=== PATIENT | female | born 1975 | race African-American/Black ===

== ENCOUNTER 2018-11-28 14:10 | Emergency (ER) | payer MEDICAID ==
[~2018-11-28] VITALS: Ht 167.6 cm; Wt 59.0 kg
[2018-11-28] MEDS ORDERED: MORPHINE SULFATE 4 MG/ML CPJ (NOT FOR IM USE) IV STA (15:02)
[2018-11-28] MEDS ORDERED: ONDANSETRON HCL 4MG/2ML INJ IV STA (15:02)
[2018-11-28] MEDS ORDERED: SODIUM CHLORIDE 0.9% 1,000 ML IV ONE (15:02)
[2018-11-28 16:14] LABS: BASOPHILS % 0.5 % (0.0-2.0); HEMATOCRIT. 35.1 % (36.0-48.0); HEMOGLOBIN. 11.4 g/dL (12.0-16.0); LYMPHOCYTES % 20.2 % (20.0-50.0); MEAN CORPUSCULAR HEMOGLOBIN 24.5 pg (28.0-32.0); MEAN CORPUSCULAR VOLUME 75.3 fL (81.0-99.0); MEAN PLATELET VOLUME 7.1 fl (7.4-10.4); MONOCYTES % 4.9 % (2.0-8.0); NEUTROPHILS % 70.4 % (40.0-76.0); PLATELET 508 x1000/uL (130-400); RED BLOOD CELL COUNT 4.65 mill/uL (4.2-5.4); RED CELL DISTRIBUTION WIDTH 20.2 % (11.6-14.6)
[2018-11-28 16:19] LABS: CHLORIDE 107 mEq/L (98-107)
[2018-11-28 16:20] LABS: INR 1.1; PROTHROMBIN TIME 11.1 sec (9.6-11.0)
[2018-11-28 16:21] LABS: HCG SCREEN POSITIVE
[2018-11-28 16:23] LABS: ETHANOL BLOOD < 10 mg/dL
[2018-11-28 18:48] LABS: CLARITY URINE CLOUDY (CLEAR); COLOR URINE YELLOW (YELLOW); KETONES URINE TRACE (NEGATIVE); LEUKOCYTE ESTERASE URINE 1+ (NEGATIVE); NITRITE URINE POSITIVE (NEGATIVE); OCCULT BLOOD URINE NEGATIVE (NEGATIVE); PROTEIN URINE TRACE (NEGATIVE)
[2018-11-28 18:59] LABS: OPIATES URINE SCREEN NEGATIVE (NEGATIVE)
[2018-11-28 19:00] LABS: *AMPHETAMINES SCREEN URINE NEGATIVE (NEGATIVE); *BARBITURATES SCREEN URINE NEGATIVE (NEGATIVE); *BENZODIAZEPINES SCREEN URINE NEGATIVE (NEGATIVE); *COCAINE SCREEN URINE NEGATIVE (NEGATIVE); CANNABINOID URINE SCREEN NEGATIVE (NEGATIVE); METHADONE URINE SCREEN NEGATIVE (NEGATIVE); PHENCYCLIDINE URINE SCREEN NEGATIVE (NEGATIVE)
[2018-11-28 20:24] VITALS: BP 134/82
== END 2018-11-28 20:28 | disposition home or self-care (01) ==
LOC: ER 14:10
DX: O99.89 Other specified diseases and conditions complicating pregnancy, childbirth and the puerperium (principal); R55 Syncope and collapse; E16.2 Hypoglycemia, unspecified; M79.631 Pain in right forearm; Z3A.00 Weeks of gestation of pregnancy not specified; O23.41 Unspecified infection of urinary tract in pregnancy, first trimester; V49.40XA Driver injured in collision with unspecified motor vehicles in traffic accident, initial encounter; Y93.89 Activity, other specified; Y92.488 Other paved roadways as the place of occurrence of the external cause
CPT/HCPCS: 36415; 70450; 71045; 72070; 72100; 73030; 73060; 73080; 73090; 73110; 73130; 80053; 80305; 80320; 81003; 82962; 84484; 84703; 85025; 85610; 85730; 93005; 99284; J7030; G0480